=== PATIENT | male | born 1985 ===

== ENCOUNTER 2017-04-26 01:45 | Emergency (ER) | payer OTHER ==
[2017-04-26] MEDS ORDERED: Naproxen 550 mg Tab PO STA (02:03)
--- NOTE | 2017-04-26 02:05 | C.PDOC ---
History Of Present Illness 31yo male, presents to ER with complaints of left anterior chest wall pain for the past 2 days. States the pain is worse with movement and deep inspiration. He denies any diaphoresis or shortness of breath. No other complaints. Time Seen by Provider: 04/26/17 01:50 Chief Complaint (Nursing): Chest Pain History Per: Patient History/Exam Limitations: no limitations Onset/Duration Of Symptoms: Days Current Symptoms Are (Timing): Still Present Past Medical History Reviewed: Historical Data, Nursing Documentation, Vital Signs Vital Signs: Last Vital Signs Temp 98.1 F 04/26/17 01:52 Pulse 85 04/26/17 01:52 Resp 20 04/26/17 01:52 BP 123/78 04/26/17 01:52 Pulse Ox 97 04/26/17 02:59 - Medical History PMH: No Chronic Diseases Surgical History: No Surg Hx Family History: States: No Known Family Hx - Social History Hx Alcohol Use: No Hx Substance Use: No - Immunization History Hx Tetanus Toxoid Vaccination: No Hx Influenza Vaccination: No Hx Pneumococcal Vaccination: No Review Of Systems Except As Marked, All Systems Reviewed And Found Negative. Constitutional: Negative for: Fever, Chills, Sweats Cardiovascular: Positive for: Chest Pain Respiratory: Negative for: Shortness of Breath Physical Exam - Physical Exam Appears: Non-toxic, No Acute Distress Skin: Normal Color, Warm, Dry Head: Normacephalic Eye(s): bilateral: Normal Inspection Neck: Normal ROM, Supple Chest: Symmetrical, Tenderness (anterior left chest wall tenderness) Cardiovascular: Rhythm Regular Respiratory: Normal Breath Sounds Neurological/Psych: Oriented x3, Normal Speech, Normal Cognition ED Course And Treatment - Laboratory Results Result Diagrams: 04/26/17 02:17 04/26/17 02:17 ECG: Interpreted By Me, Viewed By Me ECG Rhythm: Sinus Rhythm ECG Interpretation: Normal, No Acute Changes Interpretation Of ECG: NSR, normal tracings Rate From EC O2 Sat by Pulse Oximetry: 97 (RA) Pulse Ox Interpretation: Normal - Radiology CXR: Interpreted by Me, Viewed By Me CXR Interpretation: Yes: No Acute Disease, Other (normal chest film) Medical Decision Making Medical Decision Making: Plan: -- Labs -- CXR -- Naproxen 500 mg PO Disposition Counseled Patient/Family Regarding: Diagnosis - Disposition Referrals: [facility] [Outside] Disposition: HOME/ ROUTINE Disposition Time: 03:00 Condition: STABLE Prescriptions: Naproxen 375 mg PO TIDPC #20 tablet Instructions: Costochondritis (DC) Forms: [facility] (Dutch) - POA Present On Arrival: None - Clinical Impression Clinical Impression: Chest wall pain - Scribe Statement The provider has reviewed the documentation as recorded by the Scribe (Kaylie Mccullough) Provider Attestation: All medical record entries made by the Scribe were at my direction and personally dictated by me. I have reviewed the chart and agree that the record accurately reflects my personal performance of the history, physical exam, medical decision making, and the department course for this patient. I have also personally directed, reviewed, and agree with the discharge instructions and disposition.
[2017-04-26] MEDS ORDERED: Naproxen 550 mg Tab PO ONE (02:16)
[2017-04-26 02:25] LABS: BASO # 0.1 K/uL (0.0-0.2); BASO % 0.9 % (0.0-2.0); EOS # 0.2 K/uL (0.0-0.7); EOS % 2.3 % (0.0-4.0); HEMOGLOBIN 15.5 g/dL (12.0-18.0); LYMPH # 3.7 K/uL (1.0-4.3); MEAN CELL VOLUME 82.9 fL (80.0-94.0); MEAN CORPUSCULAR HEMOGLOBIN 28.9 pg (27.0-31.0); MEAN CORPUSCULAR HGB CONC 34.9 g/dL (33.0-37.0); MEAN PLATELET VOLUME 8.2 fL (7.2-11.7); MONO # 0.7 K/uL (0.0-0.8); MONO % 8.5 % (0.0-10.0); NEUT # 3.8 K/uL (1.8-7.0); NEUT % 45.3 % (50.0-75.0); NRBC % 0.2 % (0.0-2.0); RBC 5.38 Mil/uL (4.40-5.90); RED CELL DISTRIBUTION WIDTH 13.9 % (11.5-14.5); WHITE BLOOD COUNT 8.5 K/uL (4.8-10.8)
[2017-04-26 02:38] LABS: ALB/GLOB RATIO 1.3 (1.0-2.1); ALBUMIN 4.2 g/dL (3.5-5.0); ALT/SGPT 36 U/L (21-72); AST/SGOT 24 U/L (17-59); BLOOD UREA NITROGEN 13 mg/dL (9-20); CALCIUM 8.9 mg/dl (8.6-10.4); GFR AFRICAN-AMERICAN > 60; GFR NON-AFRICAN AMERICAN > 60
[2017-04-26 03:36] VITALS: BP 112/63; PULSE 65; RESP 18; TEMP 97.9; O2SAT 99
--- NOTE | 2017-04-26 08:01 | RAD ---
Chest x-ray two views History: Chest pain. Comparison: None available. Findings: No focal infiltrate or effusion. Heart size within normal limits. Impression: No focal infiltrate or effusion.
--- NOTE | 2017-04-29 09:40 | CARD ---
APPROVED REPORT EKG Measurement Heart [id number] <Conclusion> Normal sinus rhythm with sinus arrhythmia Normal ECG
== END 2017-04-26 03:13 | disposition home or self-care (01) ==
LOC: C.ER 01:45
DX: R07.89 Other chest pain (principal)